=== PATIENT | male | born 1960 ===

== ENCOUNTER 2016-09-20 09:18 | Day surgery (SDC) | payer MEDICAID ==
[2016-09-15 08:30] VITALS: BMI 26.1
[2016-09-20] MEDS ORDERED: Bupivacaine 0.5% Inj(30mL) ONE (10:51)
[2016-09-20] MEDS ORDERED: Lidocaine 1% Inj (20ml) ONE (10:52)
[2016-09-20] MEDS ORDERED: Propofol 10 mg/ml Inj (20 ML) ONE (10:52)
[2016-09-20] MEDS ORDERED: ceFAZolin IV 2 gm in Dextrose 0 ML IVPB ONE (10:52)
[2016-09-20] MEDS ORDERED: Midazolam 2 MG/2 ML VIAL ONE (10:53)
[2016-09-20] MEDS ORDERED: Lactated Ringer's 1,000 ML IV ONE ×2 (11:00→12:01)
[2016-09-20] MEDS ORDERED: ceFAZolin IV 1 gm in Dextrose 50 ML IVPB ONE (11:07)
--- NOTE | 2016-09-20 12:25 | PCM.SURG1 ---
Surgeon's Initial Post Op Note - Surgeon's Notes Surgeon: Dr. Ferrer Fitter Placer: Dr. Muniz PGY3; Dr. Falcon PGY2 Type of Anesthesia: General Endo Pre-Operative Diagnosis: Right Inguinal hernia Operative Findings: Direct hernia w/ 2 defects Post-Operative Diagnosis: Right Inguinal Hernia, Direct Operation Performed: Right Inguinal hernia repair with PHS mesh Specimen/Specimens Removed: PHS mesh inserted. Cord Lipoma removed Estimated Blood Loss: EBL {In ML}: 10 Blood Products Given: N/A Drains Used: No Drains Post-Op Condition: Good Date of Surgery/Procedure: 09/20/16 Time of Surgery/Procedure: 12:24
[2016-09-20] MEDS: HYDROmorphone 0.5 mg/0.5 ml ISec IVP PRN ×2 (12:34→13:50)
[2016-09-20 15:16] VITALS: BP 130/80; PULSE 63; RESP 18; TEMP 96.9; O2SAT 100
--- NOTE | 2016-09-20 18:27 | OP ---
PROCEDURE DATE: 09/20/2016 SURGEON: Dr. Ferrer. LOADER: Dr. Muniz and Dr. Falcon. ANESTHESIA: General. PREOPERATIVE DIAGNOSIS: Right inguinal hernia. POSTOPERATIVE DIAGNOSIS: Right inguinal hernia. PROCEDURE: Right inguinal hernia repair with mesh. DESCRIPTION OF OPERATION: With the patient in the supine position under adequate general anesthesia, the right groin was prepped and draped in usual sterile manner. A transverse incision was made in the right upper groin crease and taken down through the subcutaneous tissue. The external oblique layer was exposed and developed, and the external oblique aponeurosis was incised and then opened in the direction of its fibers from the external inguinal ring to the internal inguinal ring. The spermatic cord was identified and dissected as it passed over the pubic tubercle and the cord was elevated on a Vladislav drain. There was some fatty tissue adherent to the cord close to the internal inguinal ring; however, there was a large fatty protrusion noted below the cord extending directly through the inguinal floor. Palpation at this point revealed a medial inguinal floor defect of 1 cm in diameter with protruding fatty content and when this was reduced there was noted to be additional direct herniation more laterally through the floor, also with fatty material. The cord itself was dissected and while no indirect hernia sac was identified, a lipoma of the cord was dissected off the underlying structures back to the level of the internal ring where it was ligated and excised. The 2 defects were examined and the decision was made to repair the inguinal floor with a PHS type of double layer mesh. A size medium mesh was selected to fit the length of the inguinal floor and the preperitoneal tissue was elevated off the deep surface of the abdominal wall using a fully unfolded surgical sponge to create an adequate pocket. The inner circular layer of the mesh was then placed via the more lateral defect while the more medial herniation was elevated upward and the inner mesh was positioned to cover both defects and to extend to the level of the pubic tubercle. The mesh was rotated slightly to be sure that it was fully deployed and the lateral portion of the outer layer of the mesh was slit to accommodate passage of the spermatic cord at the internal ring. The outer layer of mesh was then sutured superiorly to the transversalis fascia and inferiorly to the shelving edge of the inguinal ligament using interrupted sutures of 2-0 Prolene beginning medially at the pubic tubercle and extending laterally beyond the internal inguinal ring. When this was completed, the inguinal floor was noted to be well covered and none of the previous herniated material was visible. The external oblique was then approximated over the spermatic cord using running suture of 0 Vicryl. Subcutaneous tissues were approximated with a few interrupted sutures of 3-0 Vicryl and closure was performed with 4-0 Monocryl subcuticular suture and Dermabond. The patient tolerated the procedure well and transferred to the recovery room in stable condition. Estimated blood loss for the procedure was 10 mL. Tena Ferrer MD cc: 58 TT: 09/20/2016 18:27:44 anupama PANTOJA
== END 2016-09-20 15:19 | disposition home or self-care (01) ==
LOC: C.SDS 09:18
PROVIDERS: ATTEND Specialist
DX: K40.90 Unilateral inguinal hernia, without obstruction or gangrene, not specified as recurrent (principal)
CPT/HCPCS: 49505; 88304; C1781; J0690; J1170; J2250; J2704; J3010; J7120

== ENCOUNTER 2018-04-20 10:11 | Emergency (ER) | payer MEDICAID ==
[2018-04-20 10:11] VITALS: BMI 26.1
[2018-04-20 10:20] VITALS: RESP 18
--- NOTE | 2018-04-20 11:37 | C.PDOC ---
History Of Present Illness 57 y/o male with history of high cholesterol presents to ED with c/o headache and intermittent dizziness since yesterday after being in his basement where he smelled fumes. Patient states he saw his PMD today for symptoms and was advised he come to ED for evaluation on possible carbon monoxide exposure. Patient admits to photophobia and throat pain, denies fever, chills, nausea, vomiting, weakness, numbness or any other complaints at this time. Time Seen by Provider: 04/20/18 10:57 Chief Complaint (Nursing): Headache History Per: Patient History/Exam Limitations: no limitations Onset/Duration Of Symptoms: Days Current Symptoms Are (Timing): Still Present Past Medical History Reviewed: Historical Data, Nursing Documentation, Vital Signs Vital Signs: Last Vital Signs Temp 98.9 F 04/20/18 10:19 Pulse 62 04/20/18 10: Resp 18 04/20/18 10:19 BP 125/87 04/20/18 10:19 Pulse Ox 100 04/20/18 10:19 - Medical History PMH: Hypercholesterolemia Surgical History: Tonsillectomy Family History: States: No Known Family Hx - Social History Hx Alcohol Use: No Hx Substance Use: No - Immunization History Hx Tetanus Toxoid Vaccination: No Hx Influenza Vaccination: No Hx Pneumococcal Vaccination: No Review Of Systems Constitutional: Negative for: Fever, Chills Eyes: Positive for: Other (photophobia). Negative for: Vision Change ENT: Positive for: Throat Pain Gastrointestinal: Negative for: Nausea, Vomiting Neurological: Positive for: Headache, Dizziness. Negative for: Weakness, Numbness Physical Exam - Physical Exam Appears: Non-toxic, No Acute Distress Skin: Warm, Dry, No Rash Head: Atraumatic, Normacephalic, Tenderness (occipital scalp), No Swelling Eye(s): bilateral: Normal Inspection (No nystagmus), PERRL, EOMI Ear(s): Bilateral: Normal Oral Mucosa: Moist Throat: No Erythema, No Exudate, No Mass Neck: Supple Cardiovascular: Rhythm Regular, No Murmur Respiratory: Normal Breath Sounds, No Rales, No Rhonchi, No Wheezing Gastrointestinal/Abdominal: Bowel Sounds, Soft, No Tenderness, No Guarding, No Rebound Neurological/Psych: Oriented x3, Normal Speech, Normal Cognition, Normal Cranial Nerves, Normal Motor, Normal Sensation, Other (No pronator drift, finger to nose normal. heel to ferreira normal. nain normal) ED Course And Treatment O2 Sat by Pulse Oximetry: 100 (RA) Pulse Ox Interpretation: Normal Medical Decision Making Medical Decision Making: pt with occipital headache, slow onset x 1 day , that started after working in a basement with fumes, seen by pmd, sent to ed for evaluation. head ct neg for acute pathology, abg neg for carboxyhemoglobin. pt reports decrease in pain s/p tylenol,. will give dose im toradol and f/u pmd. pt with steady gait. 1338 pt relays total relief of pain, will d/c home with pdm f/u Disposition Counseled Patient/Family Regarding: Studies Performed, Diagnosis, Need For Followup - Disposition Referrals: Kelsey Gonzales MD [Medical Doctor] - Disposition: HOME/ ROUTINE Disposition Time: 13:40 Condition: IMPROVED Additional Instructions: Por favor blaise un seguimiento con el Dr. Gonzales en 1-2 ruvalcaba. Traiga copia de la lisha ct y el trabajo de rossy con usted. Regrese a la kathie de emergencias por cualquier sntoma peor. Please follow up with Dr Gonzales in 1-2 days. Bring copy of head ct and blood work with you. Return to ER for any worse symptms. 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 - Scribe Statement The provider has reviewed the documentation as recorded by the Leeibvikram Peng All medical record entries made by the Scribe were at my direction and personally dictated by me. I have reviewed the chart and agree that the record accurately reflects my personal performance of the history, physical exam, medical decision making, and the department course for this patient. I have also personally directed, reviewed, and agree with the discharge instructions and disposition.
--- NOTE | 2018-04-20 12:14 | CT ---
Date of service: 04/20/2018 PROCEDURE: CT HEAD WITHOUT CONTRAST. HISTORY: slow onset occipital headache COMPARISON: None available. TECHNIQUE: Axial computed tomography images were obtained through the head/brain without intravenous contrast. Radiation dose: Total exam DLP = 984.94 mGy-cm. This CT exam was performed using one or more of the following dose reduction techniques: Automated exposure control, adjustment of the mA and/or kV according to patient size, and/or use of iterative reconstruction technique. FINDINGS: HEMORRHAGE: No intracranial hemorrhage. BRAIN: Bello-white matter differentiation is preserved. There is no mass, mass effect or abnormal extra-axial fluid collection. There is no territorial infarction. The midline sagittal structures are normal. VENTRICLES: There is mild age-related global parenchymal volume loss and proportionate enlargement of the ventricles and cortical sulci. CALVARIUM: The skull base and calvarium are normal. PARANASAL SINUSES: Predominantly clear. MASTOID AIR CELLS: Predominantly clear. OTHER FINDINGS: None. IMPRESSION: No acute intracranial abnormality.
[2018-04-20 12:43] LABS: ARTERIAL BLOOD GAS HEMOGLOBIN 14.7 g/dL (11.7-17.4); ARTERIAL BLOOD GAS O2 SAT 98.9 % (95-98)
[2018-04-20 13:04] VITALS: BP 115/82; PULSE 66; TEMP 98.4
[2018-04-20 13:42] VITALS: O2SAT 100
== END 2018-04-20 13:48 | disposition home or self-care (01) ==
LOC: C.ER 10:11
DX: R51 Headache (principal); E78.00 Pure hypercholesterolemia, unspecified
CPT/HCPCS: 36600; 70450; 82375; 82803; 82948; 96372; 99284; J1885